=== PATIENT | male | born 1935 | race Native Hawaiian/Other Pacific Islander ===

== ENCOUNTER 2016-12-02 07:57 | Day surgery (SDC) | payer MEDICARE, OTHER ==
[2016-12-02] MEDS ORDERED: Lactated Ringer's 500 ML IV ONE (08:23)
[2016-12-02] MEDS ORDERED: Propofol 10 mg/ml Inj (20 ML) ONE (09:10)
[2016-12-02 10:42] VITALS: TEMP 96.8
[2016-12-02 11:15] VITALS: BP 112/70; PULSE 70; RESP 14; O2SAT 100
== END 2016-12-02 11:36 | disposition home or self-care (01) ==
LOC: H.ENDO 07:57
PROVIDERS: ATTEND Internal Medicine Gastroenterology
DX: Z11.2 Encounter for screening for other bacterial diseases (principal); J44.9 Chronic obstructive pulmonary disease, unspecified; I10 Essential (primary) hypertension; I25.2 Old myocardial infarction; R10.13 Epigastric pain; Z86.010 Personal history of colon polyps
CPT/HCPCS: 43239; 88307; G0105; J2001; J2704; J7120